=== PATIENT | female | born 1960 | race Caucasian/White ===

== ENCOUNTER → 2021-05-04 09:51 | Outpatient (CLI) | payer OTHER, SELFPAY ==
--- NOTE | 2021-05-04 | DI.RAD.S_ITS ---
PROCEDURE: XR HIP W PEL IF DONE RT 2V INDICATIONS: PAIN RT HIP TECHNIQUE: AP pelvis with lateral view(s) of the right hip(s). COMPARISON: None. FINDINGS: Bones: No fractures or dislocations. Pelvic ring appears intact. No suspicious bony lesions. Mild osseous hypertrophy noted the hips bilaterally compatible with osteoarthritis. Mild lower lumbar spine degenerative disc changes. Soft tissues: The visualized bowel gas pattern is normal. No suspicious soft tissue calcifications. IMPRESSION: Hip osteoarthritis as described above. Dictated by: Geno Mensah MD, PhD on 05/04/2021 at 14:45 Approved by: Geno Mensah MD, PhD on 05/04/2021 at 14:46
== END ==
PROVIDERS: PCP Internal Medicine; Referring Provider Internal Medicine; Visit Provider Internal Medicine
DX: M16.0 Bilateral primary osteoarthritis of hip (principal); M25.551 Pain in right hip
CPT/HCPCS: 73502